=== PATIENT | female | born 1945 | race Caucasian/White ===

== ENCOUNTER → 2020-12-23 12:00 | Outpatient (CLI) | payer MEDICARE, SELFPAY ==
[2020-12-23 12:14] LABS: Bacteria 0 SEEN /hpf (None Seen); Mucous, Urine 0 SEEN /hpf (<or=2+); Red Blood Cells-Urine 0 SEEN /hpf (0-5)
[2020-12-23 13:21] LABS: Absolute Lymphocyte Count 1.51 X10^3/uL (0.83-4.51); Basophil# 0.05 X10^3/uL; Basophil% 0.3 % (0-1); Eosinophil# 0.23 X10^3/uL; Eosinophils% 1.5 % (0-5); Hematocrit 40.5 % (37-47); Hemoglobin 12.7 g/dL (12.0-15.0); Lymphocyte # 1.51 X10^3/ul (0.83-4.51); Lymphocyte % 10.2 % (19-41); Mean Corp Hgb Conc 31.4 g/dL (32-36); Mean Corpuscular Hgb 29.5 pg (27.0-32.0); Mean Corpuscular Volume 94.2 fL (81-99); Mean Platelet Vol. 10.4 fl (6.2-12.0); Monocyte# 0.95 X10^3/uL; Monocyte% 6.4 % (0-10); NRBC Flagged by Analyzer 0 % (0-5); Neutrophil # 12.02 X10^3/uL (2.7-7.7); Platelet Count 351 K/mm3 (150-450); RBC Distribution Width CV 13.7 % (11.6-14.6); RBC Distribution Width SD 46.6 fl (35.1-43.9); White Blood Count 14.9 K/mm3 (4.4-11.0)
[2020-12-23 17:07] LABS: Color, Urine Yellow (Yellow); Glucose, Dipstick Normal (Normal); Ketone-Dipstick Negative (Negative); Leukocyte Esterase-Dipstick 25 /ul (Negative); Nitrite-Dipstick Negative (Negative); Occult Blood-Urine 10 /ul (Negative); Protein-Dipstick 15 mg/dl (Negative); Urine Bilirubin Dipstick Negative (Negative); Urine Clarity Clear (Clear); Urine Urobilinogen Normal (Normal)
[2020-12-23 17:14] LABS: Hyaline Cast 0-5 SEEN /lpf (0-5); White Blood Cells 0-5 SEEN /hpf (0-5)
[2020-12-23 17:15] LABS: Squamous Epithelial Cells - UA 0-5 SEEN /hpf (5-10)
== END ==
PROVIDERS: PCP Family Medicine; Visit Provider Family Medicine
DX: D72.829 Elevated white blood cell count, unspecified (principal)
CPT/HCPCS: 36415; 81001; 85025; 87086; 87088

== ENCOUNTER → 2021-03-18 11:30 | Outpatient (CLI) | payer MEDICARE, SELFPAY ==
[2021-03-18 12:25] LABS: Amphetamine Urine VISTA NEGATIVE (<1000 ng/mL); Barbiturate Urine VISTA NEGATIVE (< 200 ng/mL); Benzodiazepine Urine VISTA NEGATIVE (< 200 ng/mL); Cocaine Urine VISTA NEGATIVE (< 300 ng/mL); Ecstacy Urine VISTA POSITIVE (< 500 ng/mL); Methadone Urine VISTA NEGATIVE (< 300 ng/mL); PCP Urine VISTA NEGATIVE (< 25 ng/mL); THC Urine VISTA NEGATIVE (< 50 ng/mL); Vista UDS pH Range 5
== END ==
PROVIDERS: PCP Family Medicine; Visit Provider Anesthesiology Pain Medicine
DX: F11.20 Opioid dependence, uncomplicated (principal)
CPT/HCPCS: 80307

== ENCOUNTER 2021-10-11 17:51 | Emergency (ER) | payer MEDICARE, SELFPAY ==
[2021-10-11 17:51] VITALS: BP 113/76; PULSE 107; RESP 18; TEMP 36.6; O2SAT 96; BMI 31.8
--- NOTE | 2021-10-11 18:19 | EDS_ITS ---
HPI History of Present Illness Chief Complaint: Laceration Detail of Chief Complaint: Bleeding wound right knee Informant: patient and spouse/S.O. Onset/Context/Timing Onset: Hours Mechanism/Context: Blunt Injury and Fall Location of pain/injuries: Right elbow and Right Knee Current Severity: Mild Maximum Severity: Mild Worsened by: Anticoagulant and antiplatelet medicine Relieved by: Nothing Associated Symptoms Associated Symptoms: Negative for Parasthesias, Weakness, Loss of function, Inability to ambulate, Loss of consciousness and Amnesia Narrative Narrative: Patient is a 75-year-old woman on Plavix and anticoagulant. She was seen at outside facility. She had a dressing applied and the wounds wrapped. She presents because of persistent bleeding right knee. Tetanus is not up-to-date. She states she was watching a helicopter fly overhead. When she turned she lost her balance causing blunt injury to her right elbow knee. She had x-rays done at the outside facility and they were negative. She has full active range of motion. Tetanus Immunization: Unknown Prior similar symptoms: Yes Recent Illness/Hospitalization: Yes PFSH PFSH Home Medications albuterol sulfate [Proair Hfa (SP)Vent Pts] 1 puff INHALATION PRN PRN 10/08/15 [History Last Taken Unknown] atenolol [Tenormin] 50 mg PO DAILY 10/08/15 [History Last Taken Unknown] bupropion HCl [Wellbutrin Sr] 200 mg PO BID 10/08/15 [History Last Taken Unknown] clotrimazole [Clotrimazole-3] 21 g VG QWEEK 10/08/15 [History Last Taken Unknown] cyclosporine [Restasis Ophthalmic] 1 drp EACH EYE BID 10/08/15 [History Last Taken Unknown] diazepam 2 mg PO DAILY 10/08/15 [History Last Taken Unknown] diazepam 5 mg PO QHS 10/08/15 [History Last Taken Unknown] mometasone-formoterol [Dulera 200 Mcg/5 Mcg Inhaler] 8.8 g IH PRN PRN 10/08/15 [History Last Taken Unknown] oxycodone-acetaminophen 1 tab PO TID 10/08/15 [History Last Taken Unknown] pantoprazole 20 mg PO DAILY 10/08/15 [History Last Taken Unknown] sertraline 50 mg PO DAILY 10/08/15 [History Last Taken Unknown] docusate sodium [DOK] 100 mg PO BID PRN PRN #60 capsule 10/12/15 [Rx Last Taken Unknown] Allergy/AdvReac Type Severity Reaction Status Date / Time latex Allergy REDNESS Verified 10/11/21 17:54 Penicillins Allergy Rash Verified 10/11/21 17:54 Social History (Updated 10/11/21 @ 18:[address] Domingo Cintron MD) household members: spouse Smoking Status: Never smoker substance use type: does not use ROS ROS ED Constitutional Constitutional ED: Denies fever(s) or subjective Eyes Eyes: Denies blurry vision or change in vision ENT ENT ED: Denies ear pain, rhinorrhea or sore throat Cardiovascular Cardiovascular: Denies chest pain or palpitations Respiratory/Chest Respiratory/Chest: Denies cough, dyspnea or dyspnea on exertion Gastrointestinal Gastrointestinal: Denies abdominal pain, nausea or vomiting Integumentary Reports Abrasions and other Details: Skin tear/laceration right elbow and right knee Neurologic Neurologic: Denies headache(s), paresthesias or weakness Psychiatric Psychiatric: Denies anxiety or depression Hematologic/Lymphatic Hematologic/Lymphatic: Reports easy bleeding and easy bruising EXAM Physical Exam Const Vital Signs: 10/11/21 17:51 Temperature 97.8 F Temperature Source Temporal Pulse Rate 107 H Respiratory Rate 18 Blood Pressure 113/76 Blood Pressure Mean 88 Pulse Ox 96 Oxygen Delivery Method Room Air Positive well nourished, well developed and obese General Appearance ED: well developed and NAD Nutritional Appearance: obese HEENT atraumatic and trauma Eyes PERRL and EOMs intact bilaterally Neck full ROM Resp normal respiratory effort Cardio Rate: regular rate Rhythm: abnormal rhythm irregularly irregular Extremity full ROM; Negative for normal to inspection Extremity Narrative: There is a significant subcutaneous hematoma right elbow. There is a skin tear. There is no active bleeding. There is no pain the patient over the lateral medial malleolus. There is no pain ovation over the radial head with supination pronation. Axillary, median, radial and ulnar function intact. Examination of the knee reveals a laceration that will require repair. There is active bleeding. Full active range of motion. The patellas not blottable. There is no effusion. Patient and states x-rays were obtained were interpreted as negative. General Extremety ED: Negative for deformity, edema or tenderness General Extremity: Negative for deformity or edema Neuro oriented x3, CN's II-XII intact bilaterally, moves all extremities and no sensory deficits noted Sensorium / Orientation: alert Motor Exam: strength 5/5 throughout Psych mental status grossly normal and thought process normal Skin no rashes or lesions noted Wounds: wounds noted other Previously described PROC Procedures Other Procedures Procedure(s): The laceration involving the knee is 1.3 cm and gaping. The area was anesthetized with 1% lidocaine by local infiltration. Wound was cleansed. 1 simple interrupted and 2 horizontal mattress stitches were placed. There is still minimal oozing. This may be from the underlying hematoma. The superficial laceration that is cephalad to this laceration is 4 mm in length. The skin tear is 1.5 cm in length involving the right elbow MDM MDM MDM Narrative Medical decision making narrative: Patient and were informed that the skin tear is not amenable to sutures and would result in more problems and a larger wound. The wound that is over the knee will require stitches. Please see procedure note Discharge Plan Triage Chief Complaint: Laceration ED Provider: Domingo Cintron Dx/Rx/DC Orders Clinical Impression: Laceration of knee, right, assistant terminal manager current use of anticoagulant, Skin tear of right elbow without complication, Traumatic hematoma of right elbow, Traumatic hematoma of right knee Prescriptions: No Action atenolol [Tenormin] 25 MG tablet 50 mg PO DAILY RF: 0 pantoprazole 20 MG tablet 20 mg PO DAILY RF: 0 oxycodone-acetaminophen 1 TABLET tablet 1 tab PO TID RF: 0 diazepam 2 MG tablet 2 mg PO DAILY RF: 0 albuterol sulfate [ProAir HFA] 1 PUFF inhaler 1 puff inhalation PRN PRN (Reason: Asthma) RF: 0 sertraline 50 MG tablet 50 mg PO DAILY RF: 0 diazepam 5 MG tablet 5 mg PO QHS RF: 0 clotrimazole [Clotrimazole-3] 21 GM Cream.Appl 21 g VG QWEEK RF: 0 bupropion HCl [Wellbutrin SR] 200 MG tablet 200 mg PO BID RF: 0 cyclosporine [Restasis] 1 DROP Droperette 1 drp Each Eye BID RF: 0 mometasone-formoterol [Dulera] 8.8 GM Hfa.Aer.Ad 8.8 g IH PRN PRN (Reason: Asthma) RF: 0 docusate sodium [DOK] 100 MG capsule 100 mg PO BID PRN PRN (Reason: Constipation) Qty: 60 RF: 0 Primary Care Provider: Ulises Lawler Referrals: Ulises Lawler MD [Primary Care Provider] - 10-14 Days suture removal Activity Restrictions/Additional Instructions: 1. Do not take your dose of Eliquis tonight or tomorrow morning 2. Keep dressing on for 24 hours 3. Clean wound with peroxide and Q-tip 3 times a day then apply bacitracin ointment 4. Recommend leaving sutures in place for 14 days since it is over your joint Disposition Disposition: Home, Self Care
[2021-10-11] MEDS: BACITRACIN 15 GM Tube 1 APPLIC TOPICAL (18:38)
[2021-10-11] MEDS: Diphth,Pertuss(Acell),Tet Vac 0.5 ML Vial IM (18:39)
[2021-10-11] MEDS: Lidocaine 1% (20 ml mdv) 20 ML Vial INFILT (21:28)
== END 2021-10-11 21:27 | disposition home or self-care (01) ==
PROVIDERS: Emergency Provider Emergency Medicine; PCP Family Medicine; Visit Provider Emergency Medicine
DX: S81.011A Laceration without foreign body, right knee, initial encounter (principal); S59.901A Unspecified injury of right elbow, initial encounter; W19.XXXA Unspecified fall, initial encounter; M25.521 Pain in right elbow; Z79.01 Long term (current) use of anticoagulants; Z23 Encounter for immunization
CPT/HCPCS: 12001; 90471; 90715; 99283

== ENCOUNTER → 2022-09-27 | Outpatient (CLI) | payer BC, SELFPAY ==
[2022-09-27 13:52] LABS: Amphetamine Urine VISTA NEGATIVE (<1000 ng/mL); Barbiturate Urine VISTA NEGATIVE (< 200 ng/mL); Benzodiazepine Urine VISTA NEGATIVE (< 200 ng/mL); Cocaine Urine VISTA NEGATIVE (< 300 ng/mL); Ecstacy Urine VISTA NEGATIVE (< 500 ng/mL); Methadone Urine VISTA NEGATIVE (< 300 ng/mL); PCP Urine VISTA NEGATIVE (< 25 ng/mL); THC Urine VISTA NEGATIVE (< 50 ng/mL); Vista UDS pH Range 5
== END | disposition home or self-care (01) ==
PROVIDERS: PCP Family Medicine; Referring Provider Anesthesiology Pain Medicine; Visit Provider Anesthesiology Pain Medicine
DX: F11.20 Opioid dependence, uncomplicated (principal)
CPT/HCPCS: 80307

== ENCOUNTER → 2022-12-10 | Outpatient (CLI) | payer MEDICARE, SELFPAY ==
--- NOTE | 2022-12-10 08:52 | MRI_ITS ---
HISTORY: Neck pain, no radiculopathy. TECHNIQUE: Multiplanar and multisequence MR images of the cervical spine were obtained without contrast. 256 images. COMPARISON: XR 11/21/2022, CT 12/01/2014, MRI 07/02/2014. FINDINGS: VERTEBRAE: Cervical vertebral body heights maintained. Mild bone marrow edema of the odontoid. Degenerative endplate changes of C2-3, C3-4, and C5-6 with degenerative bone marrow endplate changes of C4-5. Mild T2 compression fracture with subtle linear hypointense signal and surrounding bone marrow edema but no significant retropulsion into the spinal canal. VERTEBRAL ALIGNMENT: Chronic minimal retrolisthesis of C4-5. SPINAL CORD: Cervical cord signal and morphology within normal limits. SOFT TISSUES: No prevertebral fluid collection. INTERVERTEBRAL DISCS: C1-2: Degenerative cysts at the odontoid tip and posterior to C1-2 protruding into the ventral extradural space with posterior synovial cyst abutting the dorsal cord resulting in moderate central canal stenosis with mild kinking of the cord. C2-3: Mild posterior disc protrusion with uncovertebral and facet arthropathy progressed from prior resulting in moderate central canal stenosis with mild bilateral foraminal narrowing. C3-4: Mild posterior disc bulge osteophyte complex with uncovertebral and facet arthropathy progressed from prior resulting in mild cord impingement, severe central canal stenosis, and moderate bilateral foraminal narrowing. C4-5, C5-6: Mild posterior disc bulge osteophyte complex with uncovertebral and facet arthropathy progressed from prior resulting in moderate central canal stenosis and bilateral foraminal narrowing. C6-7, C7-T1: No significant posterior disc protrusion, central canal stenosis, or foraminal narrowing. MRI/Spine Cervical (Routine) IMPRESSION: Mild T2 compression fracture, likely subacute. 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 Progression of multilevel degenerative disc disease resulting in severe spinal canal stenosis and cord impingement at C3-4 as well as moderate spinal canal stenosis at C2-3, C4-5, and C5-6. Foraminal narrowing multiple levels. Electronically Signed: Kristina De Anda MD at 10:04 EDT ,
== END | disposition home or self-care (01) ==
LOC: MRI 08:50
PROVIDERS: PCP Family Medicine; Referring Provider Orthopaedic Surgery; Visit Provider Orthopaedic Surgery
DX: M47.812 Spondylosis without myelopathy or radiculopathy, cervical region (principal)
CPT/HCPCS: 72141

== ENCOUNTER → 2023-11-16 | Outpatient (CLI) | payer MEDICARE, SELFPAY ==
[2023-11-16 11:05] LABS: Amphetamine Urine VISTA NEGATIVE (<1000 ng/mL); Barbiturate Urine VISTA NEGATIVE (< 200 ng/mL); Benzodiazepine Urine VISTA NEGATIVE (< 200 ng/mL); Cocaine Urine VISTA NEGATIVE (< 300 ng/mL); Ecstacy Urine VISTA NEGATIVE (< 500 ng/mL); Methadone Urine VISTA NEGATIVE (< 300 ng/mL); PCP Urine VISTA NEGATIVE (< 25 ng/mL); THC Urine VISTA NEGATIVE (< 50 ng/mL); Vista UDS pH Range 5
== END | disposition home or self-care (01) ==
PROVIDERS: PCP Hospitalist; Referring Provider Anesthesiology Pain Medicine; Visit Provider Anesthesiology Pain Medicine
DX: F11.20 Opioid dependence, uncomplicated (principal)
CPT/HCPCS: 80307